=== PATIENT | male | born 1975 | race Caucasian/White ===

== ENCOUNTER 2023-06-16 03:03 | Emergency (ER) | payer MEDICAID ==
[~2023-06-16] VITALS: Ht 177.8 cm; Wt 79.0 kg
[2023-06-16 03:13] VITALS: BP 153/93; PULSE 63; RESP 20; TEMP 98.2; O2SAT 98
[2023-06-16] MEDS: acetaminophen 325mg tablet PO ONE (03:31)
[2023-06-16] MEDS: ibuprofen tablet 400 MG TABLET PO ONE (03:31)
== END 2023-06-16 03:34 | disposition home or self-care (01) ==
LOC: ER 03:05
DX: M25.521 Pain in right elbow (principal); M79.641 Pain in right hand
CPT/HCPCS: 99283